=== PATIENT | male | born 1995 | race Caucasian/White ===

== ENCOUNTER 2024-07-01 23:18 | Emergency (ER) | payer OTHER ==
[2024-07-01 23:30] VITALS: TEMP 98.7
--- NOTE | 2024-07-01 23:31 | ERPHSYRPT ---
- History of Present Illness Time Seen by Provider: 07/01/24 23:31 Source: patient, family Exam Limitations: no limitations Patient Subjective Stated Complaint: multiple seizures today, pt has hx of seizures and has been off of his medication for about 1.5 years Triage Nursing Assessment: pt wheeled to room by mother, pt shaking, pt alert and oriented x3, skin pwd, pt c/o multiple seizures today per patient that started around 2100, pt has been off of his keppra for about 1.5 years. pt has hx of seizures. Physician History: This is a 29-year-old white male patient who was brought to the emergency department by his mother because of approximately 15 seizure episodes today that began approximately 9 PM prior to arrival. Patient denies head injury. Patient worked a very long day today approximately 12 hours. Patient has no known drug allergies and he takes no medications chronically. However, he is noncompliant with his medication. He is supposed to be on Keppra. However, he states that he has yet to find a primary care provider who can write the prescription for this medication. Patient states that he has been off of his Keppra for 1-1/2 years. Patient also complains of left lower rib cage pain for approximately 2 years. He does not have a cough. He has not had a fever. He has had no nausea vomiting or diarrhea symptoms. Patient did state that he was placed on Keppra and his seizures are stress-induced. Timing/Duration: today Severity: mild Character of Deficits: none (Moderate) Deficits: no difficulties Baseline/Normal Cognition: alert oriented x 3 Current Cognition: alert oriented x 3 Baseline Gait: walks w/o assistance Associated Symptoms: seizures Allergies/Adverse Reactions: cinnamon Adverse Reaction (Verified 07/01/24 23:20) Swelling of Tongue and Lips mustard Adverse Reaction (Verified 07/01/24 23:20) Swelling Hx Tetanus, Diphtheria Vaccination/Date Given: No Hx Influenza Vaccination/Date Given: No Travel Risk - International Travel Have you traveled outside of the country in past 3 weeks: No - Emerging Infectious Disease Are you exhibiting symptoms associated with any current EIDs: No - Review of Systems Constitutional: No Symptoms Eyes: No Symptoms Ears, Nose, & Throat: No Symptoms Respiratory: No Symptoms Cardiac: No Symptoms Abdominal/Gastrointestinal: No Symptoms Genitourinary Symptoms: No Symptoms Musculoskeletal: No Symptoms Skin: No Symptoms Neurological: Seizure Psychological: No Symptoms Endocrine: No Symptoms Hematologic/Lymphatic: No Symptoms Immunological/Allergic: No Symptoms All Other Systems: Reviewed and Negative - Past Medical History Pertinent Past Medical History: Yes Neurological History: Seizures ENT History: No Pertinent History Cardiac History: No Pertinent History Respiratory History: No Pertinent History Endocrine Medical History: No Pertinent History Musculoskeletal History: Fractures GI Medical History: GERD History: No Pertinent History Psycho-Social History: No Pertinent History Male Reproductive Disorders: No Pertinent History Other Medical History: brain bleed - Past Surgical History Past Surgical History: No Neuro Surgical History: No Pertinent History Cardiac: No Pertinent History Respiratory: No Pertinent History Gastrointestinal: No Pertinent History Genitourinary: No Pertinent History Musculoskeletal: No Pertinent History Male Surgical History: No Pertinent History - Social History Smoking Status: Former smoker Exposure to second hand smoke: No Drug Use: none - Social Determinants of Health Will the patient participate in the screening: Declined to provide - Nursing Vital Signs Nursing Vital Signs: Initial Vital Signs Pulse Rate 112 H 07/01/24 23:20 Respiratory Rate 29 H 07/01/24 23:20 Blood Pressure 170/96 07/01/24 23:20 O2 Sat by Pulse Oximetry 100 07/01/24 23:20 Pain Scale Pain Intensity 0 - Ricci Coma Scale Best Eye Response ([place]): (4) open spontaneously Best Verbal Response ([place]): (5) oriented Best Motor Response ([place]): (6) obeys commands [place] Total: 15 - Physical Exam General Appearance: no apparent distress, alert, anxiety Eye Exam: bilateral eye: normal inspection, PERRL, EOMI Ears, Nose, Throat Exam: normal ENT inspection, moist mucous membranes Neck Exam: normal inspection, non-tender, supple, full range of motion Respiratory: normal breath sounds, lungs clear, airway intact, No chest tenderness, No respiratory distress Cardiovascular: tachycardia Gastrointestinal: soft (Mild), normal bowel sounds, No tenderness Rectal Exam: not done Back Exam: normal inspection, normal range of motion, No CVA tenderness, No vertebral tenderness Extremity Exam: normal inspection, normal range of motion, pelvis stable Mental Status: alert, oriented x 3, cooperative landscape architect Exam: normal hearing, normal speech, PERRL, tongue midline Coordination/Gait: normal finger to nose, normal gait, normal cerebellar function Motor/Sensory: no motor deficit, no sensory deficit, no pronator drift Skin Exam: normal color, warm, dry SpO2 Interpretation: normal SpO2: 100 O2 Delivery: Room Air - Course Nursing assessment & vital signs reviewed: Yes EKG Interpreted by Me: RATE ([id number]), Sinus Tach, NORMAL AXIS, NORMAL INTERVALS, NORMAL QRS, Other (No acute ischemic changes in today's twelve-lead EKG.) Ordered Tests: Active Orders 24 hr Category Date Time Status EKG-ER Only STAT Care 07/01/24 23:31 Active IV Insertion STAT Care 07/01/24 23:31 Active Pulse Oximetry (ED) STAT Care 07/01/24 23:31 Active CHEST 1 VIEW (PORTABLE) Stat Exams 07/01/24 23:50 Completed HEAD WITHOUT CONTRAST [CT] Stat Exams 07/01/24 23:32 Completed CBC W DIFF Stat Lab 07/01/24 23:30 Completed CMP Stat Lab 07/01/24 23:30 Completed MONO SCREEN Stat Lab 07/01/24 23:30 Completed Medication Summary Discontinued Medications Generic Name Dose Route Start Last Admin Trade Name Freq PRN Reason Stop Dose Admin Levetiracetam 500 mg/ Dextrose 105 mls @ 400 mls/hr 07/01/24 23:31 07/01/24 23:47 IV 07/01/24 23:46 400 mls/hr STAT ONE Administration Dextrose Confirm 07/01/24 23:42 D5w 100ml Mini Bag 100 Ml Administered 07/01/24 23:43 Dose 100 mls @ ud IV .STK-MED ONE Sodium Chloride 1,000 mls @ 999 mls/hr 07/01/24 23:51 07/02/24 00:01 Sodium Chloride 0.9% 1000 Ml IV 07/02/24 00:51 999 mls/hr .Q1H1M STA Administration Sodium Chloride Confirm 07/01/24 23:59 Sodium Chloride 0.9% 1000 Ml Administered 07/02/24 00:00 Dose 1,000 mls @ ud .ROUTE .STK-MED ONE Levetiracetam Confirm 07/01/24 23:42 Levetiracetam 500 Mg/5 Ml Vial Administered 07/01/24 23:43 Dose 500 mg .ROUTE .STK-MED ONE Lab/Rad Data: Laboratory Result Diagrams 07/01/24 23:30 07/01/24 23:30 Laboratory Results 08/12/24 08/12/24 08/12/24 Range/Units 23:30 23:30 23:30 WBC 15.8 H (4.23-9.07) x10^3/uL RBC 5.20 (4.63-6.08) x10^6/uL Hgb 15.5 (13.7-17.5) g/dL Hct 43.4 (40.1-51.0) % MCV 83.5 (79.0-92.2) fL MCH 29.8 (25.7-32.2) pg MCHC 35.7 (32.3-36.5) g/dL RDW 12.2 (11.6-14.4) % Plt Count 260 (163-337) x10^3/uL MPV 9.2 L (9.4-12.4) fL Gran % 80.2 H (34.0-67.9) % Immature Gran % (Auto) 0.3 (0.001-0.429) % Nucleat RBC Rel Count 0.0 (0.00-0.2) % Eos # (Auto) 0.07 (0.04-0.54) x10^3/uL Immature Gran # (Auto) 0.05 H (0.001-0.031) x10^3u/L Absolute Lymphs (auto) 1.88 (1.32-3.57) x10^3/uL Absolute Monos (auto) 1.11 H (0.30-0.82) x10^3/uL Absolute Nucleated RBC 0.00 (0.00-0.012) x10^3u/L Lymphocytes % 11.9 L (21.8-53.1) % Monocytes % 7.0 (5.3-12.2) % Eosinophils % 0.4 L (0.8-7.0) % Basophils % 0.2 (0.2-1.2) % Absolute Granulocytes 12.68 H (1.78-5.38) x10^3/uL Basophils # 0.03 (0.01-0.08) x10^3/uL Sodium 140 (135-145) mmol/L Potassium 3.5 (3.5-5.1) mmol/L Chloride 104 (98-107) mmol/L Carbon Dioxide 24 (22-30) mmol/L Anion Gap 15.1 H (5-15) MEQ/L BUN 9 (9-20) mg/dL Creatinine 1.03 (0.66-1.25) mg/dL Estimated GFR 102.1 ML/MIN Glucose 101 (74-106) mg/dL Calcium 9.7 (8.4-10.2) mg/dL Total Bilirubin 0.60 (0.2-1.3) mg/dL AST 43 (17-59) U/L ALT 61 H (0-50) U/L Alkaline Phosphatase 72 (38-126) U/L Serum Total Protein 7.9 (6.3-8.2) g/dL Albumin 4.9 (3.5-5.0) g/dL Urine Color (Yellow) Urine Appearance (Clear) Urine pH (4.6-8.0) Ur Specific [place] (1.005-1.030) Urine Protein (Negative) Urine Glucose (UA) (Negative) mg/dL Urine Ketones (Negative) Urine Blood (Negative) Urine Nitrite (Negative) Urine Bilirubin (Negative) Urine Urobilinogen (0.2) mg/dL Ur Leukocyte Esterase (Negative) U Hyaline Cast (Auto) (0-2) /LPF Urine Microscopic RBC (0-5) /HPF Urine Microscopic WBC (0-5) /HPF Ur Epithelial Cells (None Seen) /HPF Urine Bacteria (None Seen) /HPF Urine Culture Reflexed (NO) Urine Opiates Level (NEGATIVE) Ur Methadone (NEGATIVE) Urine Barbiturates (NEGATIVE) Ur Phencyclidine (PCP) (NEGATIVE) Urine Amphetamine (NEGATIVE) U Benzodiazepine Level Urine Cocaine (NEGATIVE) Urine Marijuana (THC) (NEGATIVE) Monoscreen NEGATIVE (NEGATIVE) Influenza Type A Ag (NEGATIVE) Influenza Type B Ag (NEGATIVE) RSV (PCR) (NEGATIVE) SARS-CoV-2 (PCR) (NEGATIVE) 07/01/24 07/01/24 07/01/24 Range/Units 00:01 00:01 00:01 WBC (4.23-9.07) x10^3/uL RBC (4.63-6.08) x10^6/uL Hgb (13.7-17.5) g/dL Hct (40.1-51.0) % MCV (79.0-92.2) fL MCH (25.7-32.2) pg MCHC (32.3-36.5) g/dL RDW (11.6-14.4) % Plt Count (163-337) x10^3/uL MPV (9.4-12.4) fL Gran % (34.0-67.9) % Immature Gran % (Auto) (0.001-0.429) % Nucleat RBC Rel Count (0.00-0.2) % Eos # (Auto) (0.04-0.54) x10^3/uL Immature Gran # (Auto) (0.001-0.031) x10^3u/L Absolute Lymphs (auto) (1.32-3.57) x10^3/uL Absolute Monos (auto) (0.30-0.82) x10^3/uL Absolute Nucleated RBC (0.00-0.012) x10^3u/L Lymphocytes % (21.8-53.1) % Monocytes % (5.3-12.2) % Eosinophils % (0.8-7.0) % Basophils % (0.2-1.2) % Absolute Granulocytes (1.78-5.38) x10^3/uL Basophils # (0.01-0.08) x10^3/uL Sodium (135-145) mmol/L Potassium (3.5-5.1) mmol/L Chloride (98-107) mmol/L Carbon Dioxide (22-30) mmol/L Anion Gap (5-15) MEQ/L BUN (9-20) mg/dL Creatinine (0.66-1.25) mg/dL Estimated GFR ML/MIN Glucose (74-106) mg/dL Calcium (8.4-10.2) mg/dL Total Bilirubin (0.2-1.3) mg/dL AST (17-59) U/L ALT (0-50) U/L Alkaline Phosphatase (38-126) U/L Serum Total Protein (6.3-8.2) g/dL Albumin (3.5-5.0) g/dL Urine Color Yellow (Yellow) Urine Appearance Clear (Clear) Urine pH 7.5 (4.6-8.0) Ur Specific [place] 1.025 (1.005-1.030) Urine Protein Negative (Negative) Urine Glucose (UA) Negative (Negative) mg/dL Urine Ketones Trace A (Negative) Urine Blood Negative (Negative) Urine Nitrite Negative (Negative) Urine Bilirubin Negative (Negative) Urine Urobilinogen 1.0 A (0.2) mg/dL Ur Leukocyte Esterase Negative (Negative) U Hyaline Cast (Auto) NONE SEEN (0-2) /LPF Urine Microscopic RBC 0-2 (0-5) /HPF Urine Microscopic WBC 0-2 (0-5) /HPF Ur Epithelial Cells None Seen (None Seen) /HPF Urine Bacteria None Seen (None Seen) /HPF Urine Culture Reflexed NO (NO) Urine Opiates Level NEGATIVE (NEGATIVE) Ur Methadone NEGATIVE (NEGATIVE) Urine Barbiturates NEGATIVE (NEGATIVE) Ur Phencyclidine (PCP) NEGATIVE (NEGATIVE) Urine Amphetamine NEGATIVE (NEGATIVE) U Benzodiazepine Level Not Reportable Urine Cocaine NEGATIVE (NEGATIVE) Urine Marijuana (THC) NEGATIVE (NEGATIVE) Monoscreen (NEGATIVE) Influenza Type A Ag NEGATIVE (NEGATIVE) Influenza Type B Ag NEGATIVE (NEGATIVE) RSV (PCR) NEGATIVE (NEGATIVE) SARS-CoV-2 (PCR) NEGATIVE (NEGATIVE) - Progress Progress: improved, re-examined Progress Note: 07/02/24 00:00 My medical decision making and the assignment of moderate complexity to today's medical issue is based on review of the patient's past medical history, review the patient drug list, review the patient's drug allergy list, history present illness, and physical findings on examination. The workup in this patient includes placement of intravenous line, infusion of normal saline solution, CBC, CMP, twelve-lead EKG, magnesium level, prolactin level, urinalysis, urine drug screen and CT scan of the head without contrast. Differential diagnosis includes but not limited to anxiety/stress, viral i nfection, urinary tract infection, dehydration, seizure breakthrough, acute intracranial abnormality 07/02/24 01:29 I interpreted the patient's laboratory data results. The patient does have evidence of mild dehydration. There is no other evidence of any acute, emergent medical issue. I interpreted the patient's preliminary chest x-ray report and it appears that there is some type of abnormality on the left ribs 8 and 9 that may be old and/or healing rib fracture. No evidence of pneumothorax. The final report will be dictated by the radiologist. 07/02/24 01:34 The radiologist interpreted the final report on the chest x-ray. The radiologist reads this film as no acute cardiopulmonary process. No evidence of any rib abnormalities/fractures. The CT scan of the head without contrast was interpreted by the radiologist and I reviewed the impression. The impression states no acute intracranial abnormality. Counseled pt/family regarding: lab results, diagnosis, need for follow-up, rad results Medical Desision Making - Independent Historian Additional History obtained from: Mother - Diagnostic Testing Diagnostic test were ordered, analyzed, and reviewed by me: Yes Radiological Interpretation: Interpreted by me, Reviewed by me, Teleradiologist Report - Risk of complications The pt has a mod risk of morbidity or mortality based on: Need for prescription drug management - Departure Departure Disposition: Home Clinical Impression: Breakthrough seizure, Noncompliance with medication regimen Condition: Stable Critical Care Time: No Referrals: DOCTOR,NO FAMILY [Primary Care Provider] - Follow up/PCP as directed Additional Instructions: Take your medications as prescribed. Follow-up with your primary care provider and neurologist tomorrow, 07/02/2024 to make arrangement for follow-up appointment for further evaluation and to be seen within the next 5 to 7 days Prescriptions: Levetiracetam [Keppra] 500 mg PO BID #20 tablet
[2024-07-01] MEDS ORDERED: Keppra 500 MG/5 ML ONE (23:42)
[2024-07-01] MEDS ORDERED: D5w 100ML Mini Bag 100 ML 100 ML IV ONE (23:42)
[2024-07-01 23:45] LABS: Absolute Neutrophil Ct (ANC) 12.68 x10^3/uL (1.78-5.38); BASOPHIL % 0.2 % (0.2-1.2); Basophil (Absolute #) 0.03 x10^3/uL (0.01-0.08); Eosinophil % 0.4 % (0.8-7.0); Eosinophil (Absolute #) 0.07 x10^3/uL (0.04-0.54); Hematocrit 43.4 % (40.1-51.0); Hemoglobin 15.5 g/dL (13.7-17.5); IMMATURE GRAN # 0.05 x10^3u/L (0.001-0.031); IMMATURE GRAN % 0.3 % (0.001-0.429); Lymphocyte (Absolute #) 1.88 x10^3/uL (1.32-3.57); Lymphocytes % 11.9 % (21.8-53.1); Mean Cell Volume 83.5 fL (79.0-92.2); Mean Corpuscular Hemoglobin 29.8 pg (25.7-32.2); Mean Corpuscular Hgb Concent. 35.7 g/dL (32.3-36.5); Mean Platelet Volume 9.2 fL (9.4-12.4); Monocyte (Absolute #) 1.11 x10^3/uL (0.30-0.82); Neutrophil % 80.2 % (34.0-67.9); Platelet Count 260 x10^3/uL (163-337); Red Cell Distribution Width 12.2 % (11.6-14.4); White Blood Count 15.8 x10^3/uL (4.23-9.07)
[2024-07-01] MEDS: Keppra 500 MG/5 ML*** 500 MG in D5w 100ML Mini Bag 100 ML 100 ML IV ONE (23:47)
[2024-07-01 23:59] LABS: ALBUMIN 4.9 g/dL (3.5-5.0); ANION GAP 15.1 MEQ/L (5-15); BILIRUBIN,TOTAL 0.6 mg/dL (0.2-1.3); Calcium 9.7 mg/dL (8.4-10.2); Creatinine 1 1.03 mg/dL (0.66-1.25); EST GLOMERULAR FILTRATION RATE 102.1 ML/MIN; Potassium 3.5 mmol/L (3.5-5.1); Total Protein 7.9 g/dL (6.3-8.2)
[2024-07-01] MEDS ORDERED: Sodium Chloride 0.9% 1000 ML 1,000 ML ONE (23:59)
[2024-07-02] MEDS: Sodium Chloride 0.9% 1000 ML 1,000 ML IV STA (00:01)
[2024-07-02 00:26] LABS: Amphetamine,Urine NEGATIVE (NEGATIVE); Barbiturate,Urine NEGATIVE (NEGATIVE); Cocaine,Urine NEGATIVE (NEGATIVE); Methadone,Urine NEGATIVE (NEGATIVE); Opiate,Urine NEGATIVE (NEGATIVE); PCP,Urine NEGATIVE (NEGATIVE); THC,Urine NEGATIVE (NEGATIVE)
[2024-07-02 00:36] LABS: Appearance Clear (Clear); Bacteria None Seen /HPF (None Seen); Bilirubin Negative (Negative); Blood Negative (Negative); Epithelial Cells None Seen /HPF (None Seen); Glucose, Urine Negative (Negative); Hyaline Casts NONE SEEN /LPF (0-2); Ketones Trace (Negative); Leukocyte Esterase Negative (Negative); Nitrite Negative (Negative); Ph 7.5 (4.6-8.0); Protein,Urine Dip Negative (Negative); RBC 0-2 /HPF (0-5); Specific Gravity 1.025 (1.005-1.030); WBC 0-2 /HPF (0-5)
[2024-07-02 00:37] LABS: ADD URINE CULTURE? NO (NO)
[2024-07-02 00:42] LABS: INFLUENZA A NEGATIVE (NEGATIVE); INFLUENZA B NEGATIVE (NEGATIVE); RESPIRATORY SYNCTIAL VIRUS NEGATIVE (NEGATIVE); SARS-CoV-2 Xpert Express NEGATIVE (NEGATIVE)
--- NOTE | 2024-07-02 00:53 | XRAY ---
CLINICAL HISTORY: Seizure breakthrough COMPARISON: None. TECHNIQUE: An axial non-contrast CT scan of the brain was performed from the skull base to the high parietal region. One of the following dose-reduction techniques was utilized for this exam. Automated exposure control, adjustment of the mA and/or kV according to patient size, and use of iterative reconstruction. DLP: 1016.25mGy-cm, CTDI: 53.92mGy. FINDINGS: The visualized brain parenchyma shows a normal appearance. Maldonado-white matter differentiation is maintained. No midline shifts or deformity. No intracerebral or extra axial hematoma. Normal size and configuration of the cerebral ventricles. Normal CT appearance of the posterior fossa structures namely the cerebellar hemispheres, brainstem, and cerebellar peduncles. The cerebello-pontine angles are clear. The osseous structures in the skull base are unremarkable. No definite calvarium fractures. The scanned paranasal sinuses are clear. IMPRESSION: 1. No acute intracranial event on this CT examination. 2. Unremarkable study. Electronically Signed by: Aden Lynn MD. (07/02/2024 00:48:49 EDT)
[2024-07-02 01:25] VITALS: BP 137/77; PULSE 109; RESP 27
[2024-07-02 01:31] VITALS: O2SAT 100
--- NOTE | 2024-07-02 01:33 | XRAY ---
CLINICAL HISTORY: Tender left rib cage COMPARISON: No prior studies are available for comparison. TECHNIQUE: X-ray images of the chest were obtained in posteroanterior (PA) and lateral projections. FINDINGS: Pulmonary Parenchyma: Lungs are clear bilaterally. No evidence of consolidation, collapse, or focal opacities. No pulmonary nodules identified. No evidence of pleural effusion or pleural thickening. Heart and Mediastinum: Heart size and shape are normal. No mediastinal widening or masses. No hilar or mediastinal lymphadenopathy. Bony Thorax: Bony thorax appears intact without fractures or deformities. Soft Tissues: Soft tissues overlying the chest wall are unremarkable. IMPRESSION: 1. Normal chest X-ray. No acute cardiopulmonary abnormalities identified. 2. No obvious rib fracture is seen in this view however dedicated oblique views are suggested if clinically indicated. Electronically Signed by: Aden Lynn MD. (07/02/2024 01:28:01 EDT)
[2024-07-04 11:12] LABS: Benzodiazepines Negative ng/mL (Cutoff=300)
== END 2024-07-02 01:46 | disposition home or self-care (01) ==
LOC: ED 23:18
DX: G40.909 Epilepsy, unspecified, not intractable, without status epilepticus (principal); Z91.148 Patient's other noncompliance with medication regimen for other reason; R07.81 Pleurodynia; Z79.899 Other long term (current) drug therapy
CPT/HCPCS: 0241U; 36000; 36415; 70450; 71045; 80053; 80307; 81001; 84146; 85025; 86308; 93005; 94760; 96365; 99284; J1953